=== PATIENT | female | born 1950 | race Caucasian/White ===

== ENCOUNTER → 2016-08-14 | Outpatient (CLI) | payer MEDICARE, OTHER ==
[2016-08-14 11:27] LABS: ABSOLUTE BASOPHILS # (AUTO) 0.1 10^3/uL (0.0-0.2); ABSOLUTE EOSINOPHILS # (AUTO) 0.2 10^3/uL (0.0-0.6); ABSOLUTE LYMPHOCYTES (AUTO) 1.4 10^3/uL (0.5-4.7); ABSOLUTE MONOCYTES (AUTO) 0.3 10^3/uL (0.1-1.4); ABSOLUTE NEUT (AUTO) 3.7 10^3/uL (1.7-8.2); BASOPHILS % (AUTO) 0.9 % (0-2); EOSINOPHILS % (AUTO) 3.4 % (0-6); HEMATOCRIT 42.6 % (36.0-47.0); HEMOGLOBIN 14.8 g/dL (12.0-15.5); HGB HCT DIFFERENCE 1.8; LYMPHOCYTES % (AUTO) 24.2 % (13-45); MEAN CORPUSCULAR HGB CONC 34.7 g/dL (32.0-36.0); MEAN CORPUSCULAR VOLUME 84 fl (80-97); MONOCYTES % (AUTO) 5.9 % (3-13); RED BLOOD COUNT 5.11 10^6/uL (3.72-5.28); RED CELL DISTRIBUTION WIDTH 13.2 % (11.5-14.0); SEGMENTED NEUTROPHILS % (AUTO) 65.6 % (42-78); WHITE BLOOD COUNT 5.7 10^3/uL (4.0-10.5)
[2016-08-14 11:52] LABS: ALANINE AMINOTRANSFERASE 25 U/L (9-52); ALBUMIN 4.4 g/dL (3.5-5.0); ALKALINE PHOSPHATASE 85 U/L (38-126); ANION GAP 14 (5-19); ASPARTATE AMINO TRANSFERASE 21 U/L (14-36); BILIRUBIN,DIRECT 0.3 mg/dL (0.0-0.4); BILIRUBIN,TOTAL 0.6 mg/dL (0.2-1.3); BLOOD UREA NITROGEN 11 mg/dL (7-20); CALCIUM 9.5 mg/dL (8.4-10.2); CARBON DIOXIDE 26 mmol/L (22-30); CHLORIDE 105 mmol/L (98-107); CREATININE RESULT 0.64 mg/dL (0.52-1.25); Direct HDL 58 mg/dL (>40); GLUCOSE 92 mg/dL (75-110); POTASSIUM 4.5 mmol/L (3.6-5.0); SODIUM 144.5 mmol/L (137-145); TOTAL PROTEIN 6.7 g/dL (6.3-8.2); TRIGLYCERIDES 119 mg/dL (<150)
[2016-08-14 12:03] LABS: DIRECT LDL 94 mg/dL (<100)
[2016-08-14 12:07] LABS: FREE T3 3.38 pg/mL (2.77-5.27)
[2016-08-14 12:20] LABS: THYROID STIMULATING HORMONE 0.92 uIU/mL (0.47-4.68)
== END ==
LOC: OD 10:13
PROVIDERS: ATTEND Family Medicine
DX: E78.5 Hyperlipidemia, unspecified (principal); E03.9 Hypothyroidism, unspecified; Z79.899 Other long term (current) drug therapy; E55.9 Vitamin D deficiency, unspecified
CPT/HCPCS: 36415; 80048; 80061; 80076; 82306; 84439; 84443; 84481; 85025

== ENCOUNTER → 2016-09-23 | Outpatient (CLI) | payer MEDICARE, OTHER ==
--- NOTE | 2016-09-24 12:45 | WOMENS IMAGING REPORT ---
EXAM DESCRIPTION: 3D SCREENING MAMMO BILAT COMPLETED DATE/TIME: 09/23/2016 1:11 pm REASON FOR STUDY: Z12.31, ROUTINE SCREENING MAMMO Z12.31 ENCNTR SCREEN MAMMOGRAM FOR MALIGNANT NEOP LASM OF ERIC COMPARISON: Multiple since 2007 TECHNIQUE: Standard craniocaudal and mediolateral oblique views of each breast recorded using digita l acquisition and breast tomosynthesis. LIMITATIONS: None. FINDINGS: No masses, calcifications or architectural distortion. No areas of suspicion. Read with the assistance of CAD. .[facility] - R2 Cenova Version 1.3 .[facility] Imaging - R2 Cenova Version 1.3 .[facility] Imaging - R2 Cenova Version 2.4 .[facility] - R2 Cenova Version 2.4 .[facility] - R2 Card Cutter Helper Version 9.2 IMPRESSION: NORMAL MAMMOGRAM. BIRADS 1. BREAST DENSITY: a. The breasts are almost entirely fatty. BIRAD: 1 NEGATIVE RECOMMENDATION: ROUTINE SCREENING COMMENT: The patient has been notified of the results by letter per MQSA requirements. Additional no tification policies are in place for contacting patient with suspicious or incomplete findings. Quality ID #[id number]: The [employer] recommends an annual screening mammogram for women aged 40 years or over. This facility utilizes a reminder system to ensure that all patients receive reminder letters, and/or direct phone calls for appointments. This includes reminders for routine scr eening mammograms, diagnostic mammograms, or other Breast Imaging Interventions when appropriate. Th is patient will be placed in the appropriate reminder system. The [employer] (ACR) has developed recommendations for screening MRI of the breast s in certain patient populations, to be used in conjunction with mammography. Breast MRI surveillanc e may be appropriate for women with more than 20% lifetime risk of developing breast cancer as deter mined by genetic testing, significant family history of the disease, or history of mantle radiation f or Hodgkins Disease. ACR Practice Guidelines 2008. DBT Technology DBT is a type of tomographic mammography. With conventional mammography, overlapping breast tissue ma y make lesions difficult to detect, even with good compression. DBT uses an x-ray tube that rotates a round the breast, taking images at different angles. These images are then combined to create thin sl ices of the breast that the radiologist can view as a 3D reconstruction. The Bitmenu unit can perform full-field digital mammograms (2D imaging); or DBT (3D imaging); or both, in a combination mode that quickly performs both the mammogram and the tomosynthesis scan while the breast is still compressed. PQRS 6045F: Fluoroscopic imaging is not utilized for breast tomosynthesis. TECHNICAL DOCUMENTATION: FINDING NUMBER: (1) ASSESSMENT: (1) JOB ID: [id number] [employer]- All Rights Reserved
== END ==
LOC: WI 12:56
PROVIDERS: ATTEND Family Medicine
DX: Z12.31 Encounter for screening mammogram for malignant neoplasm of breast (principal)
CPT/HCPCS: 77063; G0202; 77067

== ENCOUNTER 2017-07-17 07:48 | Day surgery (SDC) | payer MEDICARE, OTHER ==
[~2017-07-17 07:48] MED LIST: DEXTROSE 5%-1/2 NORMAL SALINE 1,000 ML IV PRN
[2017-07-17] MEDS ORDERED: FENTANYL CITRATE INJ/PF 100 MCG/2 ML AMPUL ONE (08:56)
[2017-07-17] MEDS ORDERED: ONDANSETRON HCL INJ/PF 4 MG/2 ML SDV ONE (08:56)
[2017-07-17] MEDS ORDERED: LIDOCAINE 2% INJ-PF (20 MG/ML) 10 ML AMPUL ONE (08:56)
[2017-07-17] MEDS ORDERED: MIDAZOLAM 2 MG/2 ML INJ ONE (08:56)
[2017-07-17] MEDS ORDERED: PROPOFOL INJ 200 MG/20 ML VIAL IV ONE (08:57)
[2017-07-17] MEDS ORDERED: MEPERIDINE HCL/PF INJ 25 MG/1 ML DISP.SYRIN IV PRN (09:32)
[2017-07-17] MEDS ORDERED: FENTANYL CITRATE INJ/PF 100 MCG/2 ML AMPUL IV PRN ×3 (09:32)
[2017-07-17] MEDS ORDERED: PROMETHAZINE HCL INJ 25 MG/1 ML VIAL IV PRN ×2 (09:32)
[2017-07-17] MEDS ORDERED: DIPHENHYDRAMINE HCL 50 MG/ML VIAL IV PRN (09:32)
[2017-07-17] MEDS ORDERED: OXYCODONE-ACETAMINOPHEN 5-325 MG TABLET PO PRN ×2 (09:32)
[2017-07-17] MEDS ORDERED: MORPHINE SULFATE 10 MG/ML INJ IV PRN (09:32)
--- NOTE | 2017-07-17 10:22 | Operative Report ---
Operative Report DATE OF SURGERY: 07/17/17 Operative Report: The risks, benefits and alternatives of the procedure including risks of bleeding, perforation requiring surgery are explained to the patient in detail and informed consent is obtained. Patient is taken back to the operating room and placed in the left, lateral decubital position. Timeout was called. Propofol medications administered. A rectal examination is done which did not reveal any masses, tears or fissures. An Olympus videoscope was inserted into the patient's rectum. The scope was then carefully advanced all the way to the anastomotic site.. Mild erythema is noted. The scope was then sequentially pulled back via the rest of the colon segments. Retroflexion is performed. PREOPERATIVE DIAGNOSIS: Follow-up on previous colon resection. History of polyp POSTOPERATIVE DIAGNOSIS: Mild erythema noted at the anastomosis status post biopsy. Internal hemorrhoids OPERATION: Colonoscopy with biopsy SURGEON: BENNY SANTANA ANESTHESIA: LMAC TISSUE REMOVED OR ALTERED: As noted above. COMPLICATIONS: None. ESTIMATED BLOOD LOSS: None. INTRAOPERATIVE FINDINGS: As noted above. PROCEDURE: Patient tolerated procedure well. No immediate postprocedure complications are noted. Patient discharged in good condition. Discharge date 07/17/2017. Discharge diet: Regular. Discharge activity: Regular. 2-3 week follow-up to discuss findings. 3-5 year surveillance colonoscopy. We will wait on pathology. Patient is instructed to call the office or proceed to the emergency room should there be any further problems or questions.
[2017-07-17 12:44] VITALS: BP 118/55
== END 2017-07-17 11:55 | disposition home or self-care (01) ==
LOC: OROUT 07:48
PROVIDERS: ATTEND Internal Medicine Gastroenterology
DX: Z12.11 Encounter for screening for malignant neoplasm of colon (principal); K62.89 Other specified diseases of anus and rectum; K64.8 Other hemorrhoids; Z86.010 Personal history of colon polyps; M19.90 Unspecified osteoarthritis, unspecified site; E03.9 Hypothyroidism, unspecified; Z85.038 Personal history of other malignant neoplasm of large intestine; Z90.49 Acquired absence of other specified parts of digestive tract; Z88.1 Allergy status to other antibiotic agents
CPT/HCPCS: 45380; 88305 ×2; J2250; J2704; J3490; 812; J2405; J3010

== ENCOUNTER → 2017-08-27 | Outpatient (CLI) | payer MEDICARE, OTHER ==
[2017-08-27 11:18] LABS: ABSOLUTE EOSINOPHILS # (AUTO) 0.1 10^3/uL (0.0-0.6); ABSOLUTE LYMPHOCYTES (AUTO) 1.4 10^3/uL (0.5-4.7); ABSOLUTE MONOCYTES (AUTO) 0.3 10^3/uL (0.1-1.4); BASOPHILS % (AUTO) 0.9 % (0-2); EOSINOPHILS % (AUTO) 2.4 % (0-6); HEMOGLOBIN 15.1 g/dL (12.0-15.5); MEAN CORPUSCULAR HEMOGLOBIN 28.7 pg (27.0-33.4); MEAN CORPUSCULAR HGB CONC 34.4 g/dL (32.0-36.0); MEAN CORPUSCULAR VOLUME 83 fl (80-97); MONOCYTES % (AUTO) 5.9 % (3-13); PLATELET COUNT 187 10^3/uL (150-450); RED BLOOD COUNT 5.28 10^6/uL (3.72-5.28); RED CELL DISTRIBUTION WIDTH 13.3 % (11.5-14.0); SEGMENTED NEUTROPHILS % (AUTO) 62.8 % (42-78); TOTAL CELLS COUNTED % (AUTO) 100 %; WHITE BLOOD COUNT 4.9 10^3/uL (4.0-10.5)
[2017-08-27 11:44] LABS: ALANINE AMINOTRANSFERASE 25 U/L (9-52); ALBUMIN 4.5 g/dL (3.5-5.0); ALKALINE PHOSPHATASE 73 U/L (38-126); ANION GAP 11 (5-19); ASPARTATE AMINO TRANSFERASE 20 U/L (14-36); BILIRUBIN,DIRECT 0.5 mg/dL (0.0-0.4); BILIRUBIN,TOTAL 0.6 mg/dL (0.2-1.3); BLOOD UREA NITROGEN 14 mg/dL (7-20); CALCIUM 9.9 mg/dL (8.4-10.2); CARBON DIOXIDE 29 mmol/L (22-30); CHLORIDE 105 mmol/L (98-107); CHOLESTEROL 172.08 mg/dL (0-200); GLUCOSE 92 mg/dL (75-110); POTASSIUM 4.7 mmol/L (3.6-5.0); SODIUM 145.3 mmol/L (137-145); TOTAL PROTEIN 6.9 g/dL (6.3-8.2); TRIGLYCERIDES 114 mg/dL (<150)
[2017-08-27 11:57] LABS: FREE T3 3.72 pg/mL (2.77-5.27); FREE T4 (FREE THYROXINE) 1.56 ng/dL (0.78-2.19)
[2017-08-27 11:59] LABS: DIRECT LDL 90 mg/dL (<100)
[2017-08-27 12:11] LABS: THYROID STIMULATING HORMONE 0.29 uIU/mL (0.47-4.68)
== END ==
LOC: OD 10:24
PROVIDERS: ATTEND Family Medicine
DX: E55.9 Vitamin D deficiency, unspecified (principal); E78.5 Hyperlipidemia, unspecified; E83.42 Hypomagnesemia; E03.9 Hypothyroidism, unspecified; E53.9 Vitamin B deficiency, unspecified; Z79.899 Other long term (current) drug therapy
CPT/HCPCS: 36415; 80053; 80061; 82306; 82607; 83735; 84439; 84443; 84481; 85025

== ENCOUNTER → 2017-09-30 | Outpatient (CLI) | payer MEDICARE, OTHER ==
--- NOTE | 2017-09-30 14:15 | WOMENS IMAGING REPORT ---
EXAM DESCRIPTION: BONE DENSITY HIP/SPINE COMPLETED DATE/TIME: 09/30/2017 2:07 pm REASON FOR STUDY: ASYMPTOMATIC MENOPAUSAL ; Z78.0 Z12.31 ENCNTR SCREEN MAMMOGRAM FOR MALIGNANT NEOP LASM OF ERIC Z78.0 ASYMPTOMATIC MENOPAUSAL STATE COMPARISON: 09/11/2015. TECHNIQUE: Dual-Energy X-ray Absorptiometry (DEXA) of the AP Spine and Hip. LIMITATIONS: None. FINDINGS: LUMBAR SPINE: The bone mineral density (BMD) measured from L1-L4 in the AP projection correlates with a T-score of -1.9, which is osteopenia as defined by the World Health Organization. HIP: The bone mineral density (BMD) measured in the left hip correlates with a T-score of -2.7, which is o steoporosis as defined by the World Health Organization. IMPRESSION: 1. LUMBAR SPINE: OSTEOPENIA. 2. HIP: OSTEOPOROSIS. COMMENT: The World Health Organization defines low BMD as follows: T-score: Normal: Greater than -1.0 Osteopenia: Between -1.0 and -2.5 Osteoporosis: Less than -2.5 without fractures Established osteoporosis: Less than -2.5 with fractures In general, you may wish to consider: Diagnosis Treatment Follow-up DEXA Normal BMD Prevention 2-3 years Osteopenia Prevention/Therapy 1-2 years Osteoporosis Therapy Yearly TECHNICAL DOCUMENTATION: JOB ID: [id number] [employer]- All Rights Reserved Reading location - IP/workstation name: [email or web address]
--- NOTE | 2017-09-30 14:36 | WOMENS IMAGING REPORT ---
EXAM DESCRIPTION: 3D SCREENING MAMMO BILAT COMPLETED DATE/TIME: 09/30/2017 2:07 pm REASON FOR STUDY: ROUTINE SCREENING;Z12.31 Z12.31 ENCNTR SCREEN MAMMOGRAM FOR MALIGNANT NEOPLASM OF ERIC Z78.0 ASYMPTOMATIC MENOPAUSAL STATE COMPARISON: 09/23/2016 and 09/11/2015. TECHNIQUE: Standard craniocaudal and mediolateral oblique views of each breast recorded using digita l acquisition and breast tomosynthesis. LIMITATIONS: None. FINDINGS: No masses, calcifications or architectural distortion. No areas of suspicion. Read with the assistance of CAD. .[facility] - R2 Cenova Version 1.3 .[facility] Imaging - R2 Cenova Version 1.3 .[facility] Imaging - R2 Cenova Version 2.4 .[facility] - R2 Cenova Version 2.4 .[facility] - R2 Senior Manager [employer] Version 9.2 IMPRESSION: NORMAL MAMMOGRAM. BIRADS 1. BREAST DENSITY: a. The breasts are almost entirely fatty. BIRAD: 1 NEGATIVE RECOMMENDATION: ROUTINE SCREENING COMMENT: The patient has been notified of the results by letter per [place] requirements. Additional no tification policies are in place for contacting patient with suspicious or incomplete findings. Quality ID #225: The [employer] [place] [employer] [employer] recommends an annual screening mammogram for women aged 40 years or over. This facility utilizes a reminder system to ensure that all patients receive reminder letters, and/or direct phone calls for appointments. This includes reminders for routine scr eening mammograms, diagnostic mammograms, or other Breast Imaging Interventions when appropriate. Th is patient will be placed in the appropriate reminder system. The [employer] [place] [employer] (ACR) has developed recommendations for screening MRI of the breast s in certain patient populations, to be used in conjunction with mammography. Breast MRI surveillanc e may be appropriate for women with more than 20% lifetime risk of developing breast cancer as deter mined by genetic testing, significant family history of the disease, or history of mantle radiation f or Hodgkins Disease. ACR Practice Guidelines 2008. DBT Technology DBT is a type of tomographic mammography. With conventional mammography, overlapping breast tissue ma y make lesions difficult to detect, even with good compression. DBT uses an x-ray tube that rotates a round the breast, taking images at different angles. These images are then combined to create thin sl ices of the breast that the radiologist can view as a 3D reconstruction. The NearbyNow unit can perform full-field digital mammograms (2D imaging); or DBT (3D imaging); or both, in a combination mode that quickly performs both the mammogram and the tomosynthesis scan while the breast is still compressed. PQRS 6045F: Fluoroscopic imaging is not utilized for breast tomosynthesis. TECHNICAL DOCUMENTATION: FINDING NUMBER: (1) ASSESSMENT: (1) JOB ID: [id number] [employer]- All Rights Reserved Reading location - IP/workstation name: [facility]
== END ==
LOC: WI 13:19
PROVIDERS: ATTEND Family Medicine
DX: Z12.31 Encounter for screening mammogram for malignant neoplasm of breast (principal); M81.0 Age-related osteoporosis without current pathological fracture; Z78.0 Asymptomatic menopausal state
CPT/HCPCS: 77063; 77067; 77080

== ENCOUNTER → 2018-02-26 | Outpatient (CLI) | payer MEDICARE, OTHER ==
[2018-02-26 10:55] LABS: ABSOLUTE BASOPHILS # (AUTO) 0.1 10^3/uL (0.0-0.2); ABSOLUTE EOSINOPHILS # (AUTO) 0.3 10^3/uL (0.0-0.6); ABSOLUTE LYMPHOCYTES (AUTO) 1.4 10^3/uL (0.5-4.7); ABSOLUTE MONOCYTES (AUTO) 0.3 10^3/uL (0.1-1.4); BASOPHILS % (AUTO) 1.1 % (0-2); EOSINOPHILS % (AUTO) 6.4 % (0-6); HEMATOCRIT 41.9 % (36.0-47.0); HEMOGLOBIN 14.6 g/dL (12.0-15.5); MEAN CORPUSCULAR HEMOGLOBIN 29.1 pg (27.0-33.4); MEAN CORPUSCULAR HGB CONC 34.8 g/dL (32.0-36.0); MEAN CORPUSCULAR VOLUME 83 fl (80-97); MONOCYTES % (AUTO) 6.2 % (3-13); PLATELET COUNT 213 10^3/uL (150-450); RED BLOOD COUNT 5.02 10^6/uL (3.72-5.28); RED CELL DISTRIBUTION WIDTH 13.5 % (11.5-14.0); SEGMENTED NEUTROPHILS % (AUTO) 58.3 % (42-78); TOTAL CELLS COUNTED % (AUTO) 100 %; WHITE BLOOD COUNT 5.1 10^3/uL (4.0-10.5)
[2018-02-26 11:23] LABS: ALANINE AMINOTRANSFERASE 16 U/L (9-52); ALBUMIN 4.1 g/dL (3.5-5.0); ALKALINE PHOSPHATASE 76 U/L (38-126); ANION GAP 11 (5-19); ASPARTATE AMINO TRANSFERASE 17 U/L (14-36); BILIRUBIN,DIRECT 0.4 mg/dL (0.0-0.4); BILIRUBIN,TOTAL 0.6 mg/dL (0.2-1.3); BLOOD UREA NITROGEN 11 mg/dL (7-20); CALCIUM 9.3 mg/dL (8.4-10.2); CARBON DIOXIDE 26 mmol/L (22-30); CHLORIDE 105 mmol/L (98-107); CHOLESTEROL 157.15 mg/dL (0-200); GLUCOSE 93 mg/dL (75-110); POTASSIUM 4.3 mmol/L (3.6-5.0); SODIUM 142.3 mmol/L (137-145); TOTAL PROTEIN 6.5 g/dL (6.3-8.2); TRIGLYCERIDES 106 mg/dL (<150)
[2018-02-26 11:33] LABS: DIRECT LDL 96 mg/dL (<100)
[2018-02-26 11:34] LABS: FREE T3 2.97 pg/mL (2.77-5.27)
[2018-02-26 11:48] LABS: THYROID STIMULATING HORMONE 0.55 uIU/mL (0.47-4.68)
[2018-02-26 12:18] LABS: FREE T4 (FREE THYROXINE) 1.65 ng/dL (0.78-2.19)
== END ==
LOC: OD 10:06
PROVIDERS: ATTEND Family Medicine
DX: E55.9 Vitamin D deficiency, unspecified (principal); E78.5 Hyperlipidemia, unspecified; E83.42 Hypomagnesemia; E03.9 Hypothyroidism, unspecified; E53.9 Vitamin B deficiency, unspecified; Z79.899 Other long term (current) drug therapy
CPT/HCPCS: 36415; 80053; 80061; 82306; 82607; 83735; 84439; 84443; 84481; 85025

== ENCOUNTER → 2018-08-27 | Outpatient (CLI) | payer MEDICARE ==
[2018-08-27 10:27] LABS: ABSOLUTE EOSINOPHILS # (AUTO) 0.1 10^3/uL (0.0-0.6); ABSOLUTE LYMPHOCYTES (AUTO) 1.3 10^3/uL (0.5-4.7); ABSOLUTE MONOCYTES (AUTO) 0.3 10^3/uL (0.1-1.4); ABSOLUTE NEUT (AUTO) 2.9 10^3/uL (1.7-8.2); BASOPHILS % (AUTO) 0.9 % (0-2); EOSINOPHILS % (AUTO) 3.1 % (0-6); HEMATOCRIT 44.2 % (36.0-47.0); HEMOGLOBIN 15.1 g/dL (12.0-15.5); LYMPHOCYTES % (AUTO) 27.9 % (13-45); MEAN CORPUSCULAR HEMOGLOBIN 28.8 pg (27.0-33.4); MEAN CORPUSCULAR HGB CONC 34.2 g/dL (32.0-36.0); MEAN CORPUSCULAR VOLUME 84 fl (80-97); MONOCYTES % (AUTO) 6.3 % (3-13); PLATELET COUNT 210 10^3/uL (150-450); RED BLOOD COUNT 5.25 10^6/uL (3.72-5.28); RED CELL DISTRIBUTION WIDTH 13.3 % (11.5-14.0); SEGMENTED NEUTROPHILS % (AUTO) 61.8 % (42-78); TOTAL CELLS COUNTED % (AUTO) 100 %; WHITE BLOOD COUNT 4.7 10^3/uL (4.0-10.5)
[2018-08-27 10:46] LABS: ALANINE AMINOTRANSFERASE 22 U/L (9-52); ALBUMIN 4.3 g/dL (3.5-5.0); ALKALINE PHOSPHATASE 58 U/L (38-126); ANION GAP 9 (5-19); ASPARTATE AMINO TRANSFERASE 21 U/L (14-36); BILIRUBIN,DIRECT 0.4 mg/dL (0.0-0.4); BILIRUBIN,TOTAL 0.8 mg/dL (0.2-1.3); BLOOD UREA NITROGEN 15 mg/dL (7-20); CALCIUM 9.5 mg/dL (8.4-10.2); CARBON DIOXIDE 28 mmol/L (22-30); CHLORIDE 105 mmol/L (98-107); CHOLESTEROL 178.02 mg/dL (0-200); GLUCOSE 93 mg/dL (75-110); POTASSIUM 4.6 mmol/L (3.6-5.0); SODIUM 142.1 mmol/L (137-145); TOTAL PROTEIN 6.8 g/dL (6.3-8.2); TRIGLYCERIDES 140 mg/dL (<150)
[2018-08-27 10:57] LABS: DIRECT LDL 98 mg/dL (<100)
[2018-08-27 11:03] LABS: FREE T3 3.18 pg/mL (2.77-5.27); FREE T4 (FREE THYROXINE) 1.18 ng/dL (0.78-2.19)
[2018-08-27 11:16] LABS: THYROID STIMULATING HORMONE 2.52 uIU/mL (0.47-4.68)
== END ==
LOC: OD 09:46
PROVIDERS: ATTEND Family Medicine
DX: E55.9 Vitamin D deficiency, unspecified (principal); E78.5 Hyperlipidemia, unspecified; E83.42 Hypomagnesemia; E03.9 Hypothyroidism, unspecified
CPT/HCPCS: 36415; 80053; 80061; 82306; 82550; 82607; 83735; 84439; 84443; 84481; 85025

== ENCOUNTER → 2018-10-06 | Outpatient (CLI) | payer MEDICARE ==
--- NOTE | 2018-10-14 13:34 | WOMENS IMAGING REPORT ---
EXAM DESCRIPTION: 3D SCREENING MAMMO BILAT COMPLETED DATE/TIME: 10/06/2018 1:50 pm REASON FOR STUDY: Z12.31 ENCOUNTER FOR SCREENING MAMMOGRAM FOR MALIGNANT NEOPLASM OF BREAST Z12.31 ENCNTR SCREEN MAMMOGRAM FOR MALIGNANT NEOPLASM OF ERIC COMPARISON: [id number] EXAM PARAMETERS: Views: Standard craniocaudal and mediolateral oblique views of each breast recorded using digital acquisition and breast tomosynthesis. Read with the assistance of CAD. .[facility] - R2 Co Founder [employer] Ceo Version 9.2 LIMITATIONS: None. FINDINGS: No suspicious masses, suspicious calcifications or architectural distortion. No areas of c oncern. IMPRESSION: NEGATIVE MAMMOGRAM. BIRADS 1. BREAST DENSITY: b. There are scattered areas of fibroglandular density. BIRAD: ASSESSMENT: 1 NEGATIVE RECOMMENDATION: ROUTINE SCREENING COMMENT: The patient has been notified of the results by letter per MQSA requirements. Additional no tification policies are in place for contacting patient with suspicious or incomplete findings. Quality ID #225: The [employer] recommends an annual screening mammogram for women aged 40 years or over. This facility utilizes a reminder system to ensure that all patients receive reminder letters, and/or direct phone calls for appointments. This includes reminders for routine scr eening mammograms, diagnostic mammograms, or other Breast Imaging Interventions when appropriate. Th is patient will be placed in the appropriate reminder system. TECHNICAL DOCUMENTATION: FINDING NUMBER: (1) ASSESSMENT: (1) JOB ID: [id number] [employer]- All Rights Reserved Reading location - IP/workstation name: [email or web address]
== END ==
LOC: WI 13:09
PROVIDERS: ATTEND Family Medicine
DX: Z12.31 Encounter for screening mammogram for malignant neoplasm of breast (principal)
CPT/HCPCS: 77063; 77067

== ENCOUNTER → 2019-03-01 | Outpatient (CLI) | payer MEDICARE ==
[2019-03-01 11:46] LABS: ALBUMIN 4.7 g/dL (3.5-5.0); ALKALINE PHOSPHATASE 57 U/L (38-126); ANION GAP 9 (5-19); ASPARTATE AMINO TRANSFERASE 25 U/L (14-36); BILIRUBIN,DIRECT 0.3 mg/dL (0.0-0.4); BILIRUBIN,TOTAL 0.6 mg/dL (0.2-1.3); BLOOD UREA NITROGEN 12 mg/dL (7-20); CALCIUM 9.6 mg/dL (8.4-10.2); CARBON DIOXIDE 29 mmol/L (22-30); CHLORIDE 103 mmol/L (98-107); GLUCOSE 93 mg/dL (75-110); POTASSIUM 4.5 mmol/L (3.6-5.0); TOTAL PROTEIN 7.3 g/dL (6.3-8.2); TRIGLYCERIDES 167 mg/dL (<150)
[2019-03-01 12:03] LABS: DIRECT LDL 123 mg/dL (<100)
[2019-03-01 12:14] LABS: FREE T3 3.53 pg/mL (2.77-5.27); FREE T4 (FREE THYROXINE) 1.33 ng/dL (0.78-2.19)
[2019-03-01 12:28] LABS: THYROID STIMULATING HORMONE 0.44 uIU/mL (0.47-4.68)
[2019-03-01 12:41] LABS: VLDL CHOLESTEROL 33.4 mg/dL (10-31)
== END ==
LOC: OD 10:08
PROVIDERS: ATTEND Family Medicine
DX: E78.5 Hyperlipidemia, unspecified (principal); E03.9 Hypothyroidism, unspecified; E53.9 Vitamin B deficiency, unspecified; E55.9 Vitamin D deficiency, unspecified
CPT/HCPCS: 36415; 80053; 80061; 82306; 82607; 84439; 84443; 84481

== ENCOUNTER → 2019-08-31 | Outpatient (CLI) | payer MEDICARE ==
[2019-08-31 10:27] LABS: HEMATOCRIT 45.8 % (36.0-47.0); HEMOGLOBIN 16.2 g/dL (12.0-15.5); MEAN CORPUSCULAR HEMOGLOBIN 29.7 pg (27.0-33.4); MEAN CORPUSCULAR HGB CONC 35.4 g/dL (32.0-36.0); MEAN CORPUSCULAR VOLUME 84 fl (80-97); RED BLOOD COUNT 5.45 10^6/uL (3.72-5.28); RED CELL DISTRIBUTION WIDTH 13.5 % (11.5-14.0); WHITE BLOOD COUNT 6.2 10^3/uL (4.0-10.5)
[2019-08-31 10:37] LABS: ALBUMIN 4.6 g/dL (3.5-5.0); ALKALINE PHOSPHATASE 57 U/L (38-126); ANION GAP 8 (5-19); ASPARTATE AMINO TRANSFERASE 26 U/L (14-36); BILIRUBIN,DIRECT 0.1 mg/dL (0.0-0.4); BILIRUBIN,TOTAL 0.7 mg/dL (0.2-1.3); BLOOD UREA NITROGEN 13 mg/dL (7-20); CALCIUM 9.1 mg/dL (8.4-10.2); CARBON DIOXIDE 27 mmol/L (22-30); CHLORIDE 103 mmol/L (98-107); CREATINE KINASE 65 U/L (30-135); GLUCOSE 102 mg/dL (75-110); POTASSIUM 4.5 mmol/L (3.6-5.0); TOTAL PROTEIN 7.1 g/dL (6.3-8.2); TRIGLYCERIDES 137 mg/dL (<150)
[2019-08-31 10:49] LABS: DIRECT LDL 115 mg/dL (<100)
[2019-08-31 10:55] LABS: FREE T3 3.32 pg/mL (2.77-5.27); FREE T4 (FREE THYROXINE) 1.53 ng/dL (0.78-2.19)
[2019-08-31 11:07] LABS: ABSOLUTE LYMPHOCYTES# (MANUAL) 1.9 10^3/uL (0.5-4.7); ABSOLUTE MONOCYTES # (MANUAL) 0.5 10^3/uL (0.1-1.4); BASOPHILS % (MANUAL) 0 % (0-2); EOSINOPHILS % (MANUAL) 4 % (0-6); LYMPHOCYTES % (MANUAL) 30 % (13-45); MONOCYTES % (MANUAL) 8 % (3-13); SEGMENTED NEUTROPHILS % (MAN) 58 % (42-78); TOTAL CELLS COUNTED 100
[2019-08-31 11:08] LABS: RBC MORPHOLOGY COMMENT NORMO-CYTIC/CHROMIC
[2019-08-31 11:09] LABS: THYROID STIMULATING HORMONE 0.91 uIU/mL (0.47-4.68)
[2019-08-31 11:13] LABS: PLATELET CLUMPS PRESENT; PLATELET COMMENT ADEQUATE; PLATELET COUNT 172 10^3/uL (150-450)
[2019-08-31 11:14] LABS: PLATELET LARGE PRESENT
== END ==
LOC: OD 09:43
PROVIDERS: ATTEND Family Medicine
DX: E55.9 Vitamin D deficiency, unspecified (principal); E53.9 Vitamin B deficiency, unspecified; E03.9 Hypothyroidism, unspecified; E83.42 Hypomagnesemia; E78.5 Hyperlipidemia, unspecified; Z79.899 Other long term (current) drug therapy
CPT/HCPCS: 36415; 80053; 80061; 82306; 82550; 82607; 83735; 84439; 84443; 84481; 85025

== ENCOUNTER → 2019-11-02 | Outpatient (CLI) | payer MEDICARE ==
--- NOTE | 2019-11-02 10:38 | WOMENS IMAGING REPORT ---
EXAM DESCRIPTION: 3D SCREENING MAMMO BILAT IMAGES COMPLETED DATE/TIME: 11/02/2019 10:25 am REASON FOR STUDY: Z12.31 ENCOUNTER FOR SCREENING MAMMOGRAM FOR MALIGNANT NEOPLASM OF BREAST Z12.31 ENCNTR SCREEN MAMMOGRAM FOR MALIGNANT NEOPLASM OF ERIC Z78.0 ASYMPTOMATIC MENOPAUSAL STATE COMPARISON: 10/06/2018, 09/30/2017, 09/23/2016 EXAM PARAMETERS: Views: Standard craniocaudal and mediolateral oblique views of each breast recorded using digital acquisition and breast tomosynthesis. Read with the assistance of CAD. .[facility] - [email or web address] Version 2.4 LIMITATIONS: None. FINDINGS: No suspicious masses, suspicious calcifications or architectural distortion. No areas of c oncern. IMPRESSION: NEGATIVE MAMMOGRAM. BIRADS 1. BREAST DENSITY: b. There are scattered areas of fibroglandular density. BIRAD: ASSESSMENT: 1 NEGATIVE RECOMMENDATION: ROUTINE SCREENING COMMENT: The patient has been notified of the results by letter per MQSA requirements. Additional no tification policies are in place for contacting patient with suspicious or incomplete findings. Quality ID #225: The [employer] recommends an annual screening mammogram for women aged 40 years or over. This facility utilizes a reminder system to ensure that all patients receive reminder letters, and/or direct phone calls for appointments. This includes reminders for routine scr eening mammograms, diagnostic mammograms, or other Breast Imaging Interventions when appropriate. Th is patient will be placed in the appropriate reminder system. TECHNICAL DOCUMENTATION: FINDING NUMBER: (1) ASSESSMENT: (1) JOB ID: [id number] 2010 [employer]- All Rights Reserved Reading location - IP/workstation name: [email or web address]
--- NOTE | 2019-11-02 10:40 | WOMENS IMAGING REPORT ---
EXAM DESCRIPTION: BONE DENSITY HIP/SPINE IMAGES COMPLETED DATE/TIME: 11/02/2019 10:25 am REASON FOR STUDY: Z78.0 ASYMPTOMATIC MENOPAUSAL STATE Z12.31 ENCNTR SCREEN MAMMOGRAM FOR MALIGNANT NEOPLASM OF ERIC Z78.0 ASYMPTOMATIC MENOPAUSAL STATE COMPARISON: 09/11/2015 TECHNIQUE: Dual-Energy X-ray Absorptiometry (DEXA) of the AP Spine and Hip. LIMITATIONS: None. FINDINGS: LUMBAR SPINE: The bone mineral density (BMD) measured from L1-L4 in the AP projection correlates with a T-score of -1.5, which is osteopenia as defined by the World Health Organization. BMD Change vs Baseline: +0.6% HIP: The bone mineral density (BMD) measured in the left hip correlates with a T-score of -2.4, which is o steopenia as defined by the World Health Organization. BMD Change vs Baseline: +2.5% 10 year Fracture Risk Assessment: Major Osteoporotic Fracture: Not available. Hip Fracture: Not available. IMPRESSION: 1. LUMBAR SPINE WHO CLASSIFICATION: OSTEOPENIA. 2. HIP WHO CLASSIFICATION: OSTEOPENIA. OVERALL ASSESSMENT: WHO CLASSIFICATION: OSTEOPENIA. COMMENT: The World Health Organization defines low BMD as follows: T-score: Normal: At or above -1.0 Osteopenia: Between -1.0 and -2.5 Osteoporosis: At or below -2.5 without fractures Established osteoporosis: At or below -2.5 with fractures In general, you may wish to consider: Diagnosis Treatment Follow-up DEXA Normal BMD Prevention 2-3 years Osteopenia Prevention/Therapy 1-2 years Osteoporosis Therapy Yearly TECHNICAL DOCUMENTATION: JOB ID: [id number] 2010 [employer]- All Rights Reserved Reading location - IP/workstation name: [email or web address]
== END ==
LOC: WI 10:15
PROVIDERS: ATTEND Family Medicine
DX: Z12.31 Encounter for screening mammogram for malignant neoplasm of breast (principal); Z78.0 Asymptomatic menopausal state; M85.88 Other specified disorders of bone density and structure, other site
CPT/HCPCS: 77063; 77067; 77080

== ENCOUNTER → 2020-03-07 | Outpatient (CLI) | payer MEDICARE ==
[2020-03-07 11:21] LABS: ABSOLUTE EOSINOPHILS # (AUTO) 0.2 10^3/uL (0.0-0.6); ABSOLUTE LYMPHOCYTES (AUTO) 1.1 10^3/uL (0.5-4.7); ABSOLUTE MONOCYTES (AUTO) 0.3 10^3/uL (0.1-1.4); ABSOLUTE NEUT (AUTO) 4.7 10^3/uL (1.7-8.2); BASOPHILS % (AUTO) 0.7 % (0-2); EOSINOPHILS % (AUTO) 2.8 % (0-6); HEMATOCRIT 41.3 % (36.0-47.0); HEMOGLOBIN 14.7 g/dL (12.0-15.5); LYMPHOCYTES % (AUTO) 17.5 % (13-45); MEAN CORPUSCULAR HEMOGLOBIN 29.5 pg (27.0-33.4); MEAN CORPUSCULAR HGB CONC 35.6 g/dL (32.0-36.0); MEAN CORPUSCULAR VOLUME 83 fl (80-97); MONOCYTES % (AUTO) 5.4 % (3-13); PLATELET COUNT 184 10^3/uL (150-450); RED BLOOD COUNT 4.98 10^6/uL (3.72-5.28); RED CELL DISTRIBUTION WIDTH 13.5 % (11.5-14.0); SEGMENTED NEUTROPHILS % (AUTO) 73.6 % (42-78); TOTAL CELLS COUNTED % (AUTO) 100 %; WHITE BLOOD COUNT 6.4 10^3/uL (4.0-10.5)
[2020-03-07 11:39] LABS: ALBUMIN 4.3 g/dL (3.5-5.0); ALKALINE PHOSPHATASE 58 U/L (38-126); ANION GAP 9 (5-19); ASPARTATE AMINO TRANSFERASE 23 U/L (14-36); BILIRUBIN,DIRECT 0.2 mg/dL (0.0-0.4); BILIRUBIN,TOTAL 0.6 mg/dL (0.2-1.3); BLOOD UREA NITROGEN 12 mg/dL (7-20); CALCIUM 9.4 mg/dL (8.4-10.2); CARBON DIOXIDE 25 mmol/L (22-30); CHLORIDE 104 mmol/L (98-107); GLUCOSE 103 mg/dL (75-110); POTASSIUM 4.3 mmol/L (3.6-5.0); TOTAL PROTEIN 6.5 g/dL (6.3-8.2); TRIGLYCERIDES 122 mg/dL (<150)
[2020-03-07 11:50] LABS: DIRECT LDL 97 mg/dL (<100)
[2020-03-07 13:07] LABS: FREE T4 (FREE THYROXINE) 1.64 ng/dL (0.78-2.19)
[2020-03-07 13:22] LABS: THYROID STIMULATING HORMONE < 0.01 uIU/mL (0.47-4.68)
--- OUTSIDE RECORDS SUMMARY | 2020-03-08 18:27 | XMS REPORT ---
:1950 Author Organization [facility] Address [facility] [address] [place] [id number] Care Team Providers Name Role Phone Unavailable Unavailable Unavailable Allergies, Adverse Reactions, Alerts This patient has no known allergies or adverse reactions. Medications This patient has no known medications. Problems This patient has no known problems. Procedures This patient has no known procedures. Results This patient has no known results. Social History This patient has no known social history. Vital Signs This patient has no known vital signs.
== END ==
LOC: OD 10:14
PROVIDERS: ATTEND Family Medicine
DX: E78.5 Hyperlipidemia, unspecified (principal); E83.42 Hypomagnesemia; E03.9 Hypothyroidism, unspecified; Z79.899 Other long term (current) drug therapy; Z79.891 Long term (current) use of opiate analgesic
CPT/HCPCS: 36415; 80053; 80061; 83735; 84439; 84443; 85025

== ENCOUNTER → 2020-03-14 | Outpatient (CLI) | payer MEDICARE ==
--- NOTE | 2020-03-14 12:50 | RADIOLOGY REPORT (SQ) ---
EXAM DESCRIPTION: CHEST PA/LATERAL IMAGES COMPLETED DATE/TIME: 03/14/2020 11:20 am REASON FOR STUDY: OTHER CHEST PAIN COMPARISON: 2012 EXAM PARAMETERS: NUMBER OF VIEWS: two views TECHNIQUE: Digital Frontal and Lateral radiographic views of the chest acquired. RADIATION DOSE: NA LIMITATIONS: none FINDINGS: LUNGS AND PLEURA: No opacities, masses or pneumothorax. No pleural effusion. MEDIASTINUM AND HILAR STRUCTURES: No masses or contour abnormalities. HEART AND VASCULAR STRUCTURES: Heart normal size. No evidence for failure. BONES: No acute findings. HARDWARE: None in the chest. OTHER: No other significant finding. IMPRESSION: NO SIGNIFICANT RADIOGRAPHIC FINDING IN THE CHEST. TECHNICAL DOCUMENTATION: JOB ID: [id number] 2010 [employer]- All Rights Reserved Reading location - IP/workstation name: [email or web address]
--- NOTE | 2020-03-14 19:27 | EKG REPORT ---
SEVERITY:- NORMAL ECG - SINUS RHYTHM : Confirmed by: Carole Gay MD 14-Mar-2020 19:26:40
== END ==
LOC: OD 10:42
PROVIDERS: ATTEND Family Medicine
DX: R07.89 Other chest pain (principal)
CPT/HCPCS: 71046; 93005; 93010